=== PATIENT | male | born 1975 ===

== ENCOUNTER 2023-11-20 16:04 | Emergency (ER) | payer BC, SELFPAY ==
[2023-11-20 16:09] VITALS: BP 132/85
--- NOTE | 2023-11-20 16:20 | ED.GENMED ---
History of Present Illness
<Angy Esteban PA-C - Last Filed: 11/21/23 11:50>
General
Chief Complaint: Musculo-Skeletal Complaint
Source: patient
Exam Limitations: none
Time Seen by Provider: 11/20/23 16:17
Nursing documentation reviewed up to this point in time: agreed with
History of Present Illness
History of Present Illness:
Patient is a 47-year-old male presenting to the emergency department for evaluation of right ankle injury. Patient states he was playing in a softball game earlier this morning around 10:30 AM when he took off in a sprint and felt a sudden
sensation in his right calf. Patient states that he has had some difficulty ambulating since and endorses pain in his right mid calf. Patient has been able to bear weight minimally. Patient does feel that there is a bump/defect on his right
medial lower leg near Achilles tendon. Patient does report an minor injury to his right Achilles in the past.
Patient denies any numbness/tingling in his right foot. Patient denies sustaining any other injuries.
Review of Systems
<Angy Esteban PA-C - Last Filed: 11/21/23 11:50>
Review of Systems
Allergies reviewed?: Yes
All Other Systems: ROS reviewed and negative except as documented in HPI and ROS
Phy Exam
<Angy Esteban PA-C - Last Filed: 11/21/23 11:50>
Physical Exam
Physical Exam:
Vitals: Patient's vital signs are stable. Afebrile
General: Patient is well appearing, no acute distress
Skin: Warm and dry, no rashes or lesions
Head: Normocephalic, atraumatic
Throat: Protecting airway
Neck: Normal ROM, no cervical spine tenderness
Cardiac: Regular rate
Pulm: No apparent respiratory distress
Abdomen: Nondistended
Extremities: Right lower extremity without any obvious trauma. Mild tenderness to palpation of right mid calf. No notable ecchymoses, edema, or erythema of right lower extremity. No calcaneal tenderness. No bony tenderness of right lower
extremity. Right Achilles intact. Negative Radford test. Great sensation and palpable distal pulse in right lower extremity. Patient able to plantarflex and dorsiflex right foot with minimal pain.
Neuro: Grossly intact
Psychiatric: Normal affect.
Course
<Angy Esteban PA-C - Last Filed: 11/21/23 11:50>
Orders/Labs/Results
Orders:
Orders
11/20/23 17:16
Ortho Boot Right- Treatment ONCE
Short or tall?: Tall
Vital Signs
Initial and Last Documented VS:
Initial Vital Signs
Temp Pulse Resp BP Pulse Ox
98.1 F 67 17 132/85 100
11/20/23 16:09 11/20/23 16:09 11/20/23 16:09 11/20/23 16:09 11/20/23 16:09
Last Documented Vital Signs
Temp Pulse Resp BP Pulse Ox
98.1 F 60 18 120/70 100
11/20/23 16:09 11/20/23 17:36 11/20/23 17:36 11/20/23 17:36 11/20/23 16:09
<Dior Baptiste DO - Last Filed: 11/20/23 17:19>
Orders/Labs/Results
Orders:
Orders
11/20/23 17:16
Ortho Boot Right- Treatment ONCE
Short or tall?: Tall
Vital Signs
Initial and Last Documented VS:
Initial Vital Signs
Temp Pulse Resp BP Pulse Ox
98.1 F 67 17 132/85 100
11/20/23 16:09 11/20/23 16:09 11/20/23 16:09 11/20/23 16:09 11/20/23 16:09
Last Documented Vital Signs
Temp Pulse Resp BP Pulse Ox
98.1 F 60 18 120/70 100
11/20/23 16:09 11/20/23 17:36 11/20/23 17:36 11/20/23 17:36 11/20/23 16:09
<Angy Esteban PA-C - Last Filed: 11/21/23 11:50>
MDM/Problems Addressed
Differential Diagnosis Includes:
Not limited to: Muscle strain, hematoma, ankle sprain, Achilles tendon rupture/sprain, etc.
MDM/Problems Addressed:
47 year old male with suspected right calf strain sustained while playing softball game earlier today. Patient able to bear weight with minimal pain. Vitals stable. Exam as above. No obvious trauma to right lower extremity. There is some tenderness
to right mid calf without any notable erythema, edema, or ecchymosis. Right achilles tendon intact with negative Radford test. Patient able to plantarflex and dorsiflex with minimal pain. There is absolutely no bony tenderness of right lower
extremity including right knee, right ankle, and right foot. No indication for xray imaging at this time. Palpable pulses in RLE. Did perform bedside US of right lower leg which shows intact right achilles and no obvious hematoma. Suspect likely
calf strain. Will place patient in ortho boot and arrange orthopedic f/u outpatient. Patient comfortable with plan. Seen with attending physician.
Chronic conditions affecting care:
N/A
Acute Exacerbation and/or Progression of Chronic Illness:
N/A
<Angy Esteban PA-C - Last Filed: 11/21/23 11:50>
*Pulse Oximetry
Patient hypoxic: no
*EKG
Interpreted by ED Provider?: NA
*Computer Systems Administrator Interpretation
Rate: Computer Systems Administrator- N/A
*Critical Care Note
Total Time (30-74mins, 75-104mins- exclusive of procedures): Not Applicable
ED Attending Note
<Angy Esteban PA-C - Last Filed: 11/21/23 11:50>
-
Portions of this chart may have been created with voice recognition software.� Occasional wrong word or��sound alike� substitutions may have occurred due to the inherent limitations of voice recognition software.
<Diormagalis Baptiste DO - Last Filed: 11/20/23 17:19>
ED Attending Note
Patient seen and examined by attending physician: Yes
I performed the substantive portion of visit, reviewed & personally made and approve the management plan that is documented in note by myself or ROSLYN.: Yes
I performed a history and physical exam of patient and discussed management with resident, I reviewed resident's note and agree with documented findings and plan of care.: Yes
ED Attending Note:
47-year-old male presenting to the emergency department for right calf pain after running. Patient was running prior to arrival, felt a pop and was concerned for his Achilles. He has been able to weight, however with a limp. Denies numbness or
tingling to his extremity. Denies direct trauma to the limit. Vital signs are normal.
On exam, no significant swelling or deformity to the extremity. Distal sensation and pulses intact. No tenderness to the Achilles with dorsiflexion and plantarflexion of the foot intact. Focal tenderness to the calf with suspicion for
gastrocnemius strain. No present indication for imaging. Will place in a boot with plan for outpatient orthopedic follow-up
Discharge Plan
Departure
Patient Disposition: Home (Routine Discharge)
Date of Disposition: 11/20/23
Time of Disposition: 17:18
Patient with high blood pressure during this ER visit?: No
Condition: Good
Covid-19: Not Applicable
Discharge Problem:
Right leg injury
Instructions: Muscle Strain (DC)
Referrals:
Gregory Ruvalcaba MD [Active] - Call in 1-3 days for appt
Sami Vazquez MD [Family Provider] -
Activity Restrictions/Additional Instructions:
RETURN TO THE EMERGENCY DEPARTMENT WITH ANY FEVER, NUMBNESS/TINGLING IN RIGHT LOWER EXTREMITY, SIGNIFICANT PAIN, SWELLING, OR BRUISING OF RIGHT LEG, INABILITY TO AMBULATE
-As discussed that you should ice, elevate your right leg as often as possible. Take Motrin as needed for discomfort you should limit any strenuous activities. Keep right leg in Ortho boot as symptoms continue to heal.
-Follow-up with orthopedics for further evaluation/management
Monitor your symptoms closely return to the emergency department with any acute worsening/new symptoms
Interventions
Interventions:
*Risk Screen - Suicide Last Done: 11/20/23 16:11
*General Assessment Last Done: 11/20/23 16:11
*Neglect/Abuse Screening Last Done: 11/20/23 16:11
*ED COVID-19 Vaccine History Last Done: 11/20/23 16:11
*Nursing Disposition Last Done: 11/20/23 17:36
ED-Musculoskeletal Assessment Last Done: 11/20/23 16:19
Discharge Date and Time
Discharge Date/Time: 11/20/23 17:37
Print Language: [place] CITIZ[place]
[2023-11-20 17:36] VITALS: BP 120/70
== END 2023-11-20 17:37 | disposition home or self-care (01) ==
LOC: EMR 16:04
PROVIDERS: EMERGENCY PHYSICIAN Student in an Organized Health Care Education/Training Program; FAMILY PHYSICIAN Internal Medicine
DX: S89.91XA Unspecified injury of right lower leg, initial encounter (principal); M79.661 Pain in right lower leg; R26.2 Difficulty in walking, not elsewhere classified; X58.XXXA Exposure to other specified factors, initial encounter; Y93.64 Activity, baseball; Y92.320 Baseball field as the place of occurrence of the external cause; Z88.1 Allergy status to other antibiotic agents; Z88.2 Allergy status to sulfonamides
CPT/HCPCS: 99283; 29515

== ENCOUNTER 2025-02-25 06:28 | Day surgery (SDC) | payer BC, SELFPAY | END 2025-02-25 10:00 | disposition home or self-care (01) | LOC: GI 06:28 | PROVIDERS: ATTENDING PHYSICIAN Student in an Organized Health Care Education/Training Program | DX: Z12.11 Encounter for screening for malignant neoplasm of colon (principal); D17.5 Benign lipomatous neoplasm of intra-abdominal organs; K63.89 Other specified diseases of intestine; K63.5 Polyp of colon; Z86.0100 Personal history of colon polyps, unspecified | CPT/HCPCS: 45385; 45380; 88305 ==